=== PATIENT | female | born 1990 | race Asian ===

== ENCOUNTER 2018-11-04 03:33 | Emergency (ER) | payer OTHER ==
[~2018-11-04] VITALS: Ht 157.5 cm; Wt 83.5 kg
[2018-11-04 03:46] VITALS: Ht 157.5 cm; Wt 83.5 kg
[2018-11-04 04:10] VITALS: BP 137/97
== END 2018-11-04 04:10 | disposition home or self-care (01) ==
LOC: ED 03:33
DX: H60.92 Unspecified otitis externa, left ear (principal)